=== PATIENT | female | born 1930 | race Caucasian/White ===

== ENCOUNTER 2017-08-09 09:32 | Inpatient (IN) | payer MEDICARE ==
[2017-08-09] VITALS (17 sets, daily range): BP systolic 95–138; BP diastolic 54–80; PULSE 67–111; RESP 16–40; TEMP 97.7–98.7; O2SAT 98–100
[~2017-08-09] VITALS: Ht 165.1 cm; Wt 70.5 kg
[~2017-08-09 09:32] MED LIST: APRISO PO; ATEN1TAB73 PO; BACT800T5 PO; PRAV10 PO; SAXA5TAB2 PO
[2017-08-09] MEDS ORDERED: SODIUM CHLOR 0.9% 1000 ML INJ 1,000 ML IV SCH (09:40)
[2017-08-09] MEDS ORDERED: SODIUM CHLORIDE 0.9% FLUSH 10 ML FLUSH IVF PRN (09:45)
--- NOTE | 2017-08-09 09:52 | PD ---
HPI Chief Complaint: rectal bleeding Time Seen by Provider: 09:40 Travel History International Travel<30 days: No Contact w/Intl Traveler<30days: No Traveled to known affect area: No History of Present Illness HPI The patient was seen and examined in the presence of the nurse. This patient started having rectal bleeding yesterday evening. It's bright red liquid blood coming down. He thinks that it's her hemorrhoids. She's had history of hemorrhoidal bleeding in the past. She denies having a GI physician or any recent bleeding. She denies blood thinners. She's had a colonoscopy in the past but a lot of years ago. No syncope. She is not having any pain. Severity is moderate. She called paramedics. They reported about 100 cc of blood on the floor and active blood running down her leg. Symptoms have no alleviating factors. There are no exacerbating factors. duration one day PFSH Past Medical History Arthritis: Yes Asthma: No Autoimmune Disease: Yes (ulcerative colitis) Anxiety: Yes Depression: No Heart Rhythm Problems: Yes (IRREGULAR HEART BEAT) Cancer: No Cardiovascular Problems: Yes High Cholesterol: No Chest Pain: No Congestive Heart Failure: No COPD: No Cerebrovascular Accident: No Diabetes: Yes Diminished Hearing: No Diverticulitis: Yes (POLUPS) Gastrointestinal Disorders: Yes (ULCERATIVE COLITIS) GERD: No Genitourinary: No Headaches: No Hiatal Hernia: No Hypertension: Yes Immune Disorder: Yes Implanted Vascular Access Dvce: No Kidney Stones: No Musculoskeletal: Yes Neurologic: No Psychiatric: No Reproductive: No Respiratory: No Immunizations Current: Yes Renal Failure: No Seizures: No Sleep Apnea: No Thyroid Disease: No Ulcer: No Menopausal: Yes : 2 Para: 2 Past Surgical History Abdominal Surgery: No Cardiac Surgery: No Ear Surgery: No Endocrine Surgery: No Eye Surgery: No Genitourinary Surgery: No Gynecologic Surgery: No Neurologic Surgery: No Oral Surgery: No Thoracic Surgery: No Other Surgery: Yes (VARICOSE VEINS) Social History Alcohol Use: No Tobacco Use: No Substance Use: No Allergies-Medications (Allergen,Severity, Reaction): Coded Allergies: lisinopril (Unverified Allergy, Severe, Rash, 08/09/17) penicillin G (Unverified Allergy, Severe, HIVES, 08/09/17) CONFIRM? shrimp (Unverified Allergy, Severe, PT STATES SHE "PASSES OUT" WHEN SHE EATS SHRIMP, 08/09/17) ORIGINAL ALLERGY ENTERED WAS TO GENERAL SEAFOOD. PT CLEARLY STATED THE ONLY TYPE OF SEAFOOD SHE REACTS TO IS SHRIMP, SHE EATS ALL OTHER SEAFOOD ON A REGULAR BASIS AT HOME. Uncoded Allergies: WINE (Adverse Reaction, Unknown, 06/26/03) Reported Meds & Prescriptions Reported Meds & Active Scripts Active Reported Metformin (Metformin HCl) 500 Mg Tab Unknown Dose PO BIDPC Atenolol 25 Mg Tab 25 Mg PO DAILY Pravastatin 10 Mg Tab 10 Mg PO DAILY [Apriso Er 0.375] 0.375 Gm PO DAILY 4 CAPS IN AM Review of Systems General / Constitutional: No: Fever Eyes: No: Visual changes HENT: No: Headaches Cardiovascular: No: Chest Pain or Discomfort Respiratory: No: Shortness of Breath Gastrointestinal: Positive: Hematochezia, No: Abdominal Pain Genitourinary: No: Dysuria Musculoskeletal: No: Pain Skin: No Rash Neurologic: No: Weakness Psychiatric: No: Depression Endocrine: No: Polydipsia Hematologic/Lymphatic: No: Easy Bruising Physical Exam Narrative GENERAL: Elderly well-developed patient in no apparent distress. SKIN: Focused skin assessment reveals no rash and nodules. Skin is Warm and dry. HEAD: Atraumatic. Normocephalic. EYES: Pupils equal and round. No scleral icterus. No injection or drainage. ENT: No nasal bleeding or discharge. Mucous membranes pink and moist. NECK: Trachea midline. No JVD. CARDIOVASCULAR: Irregularly irregular rhythm. No murmur appreciated. RESPIRATORY: No accessory muscle use. Clear to auscultation. Breath sounds equal bilaterally. GASTROINTESTINAL: Abdomen soft, non-tender, nondistended. Hepatic and splenic margins not palpable. MUSCULOSKELETAL: No obvious deformities. No clubbing. No cyanosis. No edema. NEUROLOGICAL: Awake and alert. No obvious cranial nerve deficits. Motor grossly within normal limits. Normal speech. PSYCHIATRIC: Appropriate mood and affect; insight and judgment normal. Rectal: Has some prominent heaped up tissue around the anus. No active external hemorrhoidal bleeding. However upon rectal exam, as soon as finger was inserted there was immediate onset of bright red liquid bleeding. Data Data Last Documented VS Vital Signs Date Time Temp Pulse Resp B/P (MAP) Pulse Ox O2 Delivery O2 Flow Rate FiO2 08/09/17 10:46 77 16 95/62 (73) 99 Room Air 08/09/17 09:53 97.9 Orders Orders Basic Metabolic Panel (Bmp) (08/09/17 09:40) Complete Blood Count With Diff (08/09/17 09:40) Prothrombin Time / Inr (Pt) (08/09/17 09:40) Act Partial Throm Time (Ptt) (08/09/17 09:40) Type And Screen (08/09/17 09:40) Ecg Monitoring (08/09/17 09:40) Iv Access Insert/Monitor (08/09/17 09:40) Oximetry (08/09/17 09:40) Sodium Chlor 0.9% 1000 Ml Inj (Ns 1000 M (08/09/17 09:40) Sodium Chloride 0.9% Flush (Ns Flush) (08/09/17 09:45) Electrocardiogram (08/09/17 ) Complete Blood Count With Diff (08/09/17 10:54) Admit Order (Ed Use Only) (08/09/17 11:07) Labs Laboratory Tests Test 08/09/17 09:45 08/09/17 11:00 White Blood Count 9.5 TH/MM3 8.9 TH/MM3 Red Blood Count 3.90 MIL/MM3 3.72 MIL/MM3 Hemoglobin 10.9 GM/DL 10.4 GM/DL Hematocrit 34.1 % 32.7 % Mean Corpuscular Volume 87.5 FL 88.1 FL Mean Corpuscular Hemoglobin 28.1 PG 28.1 PG Mean Corpuscular Hemoglobin Concent 32.1 % 31.9 % Red Cell Distribution Width 13.6 % 13.6 % Platelet Count 179 TH/MM3 180 TH/MM3 Mean Platelet Volume 9.2 FL 9.3 FL Neutrophils (%) (Auto) 82.3 % 78.9 % Lymphocytes (%) (Auto) 8.4 % 10.2 % Monocytes (%) (Auto) 7.8 % 6.8 % Eosinophils (%) (Auto) 0.9 % 0.8 % Basophils (%) (Auto) 0.6 % 3.3 % Neutrophils # (Auto) 7.8 TH/MM3 7.0 TH/MM3 Lymphocytes # (Auto) 0.8 TH/MM3 0.9 TH/MM3 Monocytes # (Auto) 0.7 TH/MM3 0.6 TH/MM3 Eosinophils # (Auto) 0.1 TH/MM3 0.1 TH/MM3 Basophils # (Auto) 0.1 TH/MM3 0.3 TH/MM3 CBC Comment DIFF FINAL DIFF FINAL Differential Comment Prothrombin Time 13.4 SEC Prothromb Time International Ratio 1.2 RATIO Activated Partial Thromboplast Time 41.0 SEC Blood Urea Nitrogen 27 MG/DL Creatinine 0.91 MG/DL Random Glucose 142 MG/DL Calcium Level 7.9 MG/DL Sodium Level 137 MEQ/L Potassium Level 3.6 MEQ/L Chloride Level 102 MEQ/L Carbon Dioxide Level 23.3 MEQ/L Anion Gap 12 MEQ/L Estimat Glomerular Filtration Rate 58 ML/MIN MDM Medical Decision Making Medical Screen Exam Complete: Yes Emergency Medical Condition: Yes Medical Record Reviewed: Yes Differential Diagnosis Internal hemorrhoidal bleeding, AV malformation, tumor, diverticulosis Narrative Course I have reviewed the patient's electronic medical record. Patient was seen here 2013 and that time it was noted that she had a history of ulcerative colitis IV placed 2 Initial blood pressure is low at 100 systolic I gave her total of 2 L normal saline IV bolus Blood sent for type and screen CBC Metabolic profile Coagulation studies I reviewed her EKG which shows atrial fibrillation with a rate of 74 Extended cardiac monitoring shows irregularly irregular rhythm Patient denies history of arrhythmia or any blood thinners including aspirin. Critical Care Narrative Aggregate critical care time was 38 minutes. Time to perform other separately billable procedures was not included in the critical care time. My time did not include minutes spent treating any other patients simultaneously or on activities that did not directly contribute to the patient's treatment. The services I provided to this patient were to treat and/or prevent clinically significant deterioration that could result in: Hemorrhagic shock, cardiopulmonary arrest I provided critical care services requiring my management, as noted below: Chart data review, documentation time, medication orders and management, vital sign assessments/reviewing monitor data, ordering and reviewing lab tests, ordering and interpreting/reviewing x-rays and diagnostic studies, care of the patient and discussion of the patient with the admitting physicians. Diagnosis Primary Impression: GI bleed Qualified Codes: K92.2 - Gastrointestinal hemorrhage, unspecified Additional Impression: Hypotension Qualified Codes: I95.9 - Hypotension, unspecified Admitting Information Admitting Physician Requests: Lon Heller MD Aug 09, 2017 09:52
[2017-08-09 10:01] LABS: AUTOMATED NEUTROPHIL # 7.8 TH/MM3 (1.8-7.7); BASOPHIL # 0.1 TH/MM3 (0-0.2); BASOPHIL % 0.6 % (0.0-2.0); EOSINOPHIL # 0.1 TH/MM3 (0-0.4); EOSINOPHIL % 0.9 % (0.0-4.0); HEMATOCRIT 34.1 % (35.0-46.0); HEMO FLAGS DIFF FINAL; LYMPH % 8.4 % (9.0-44.0); LYMPHOCYTE # 0.8 TH/MM3 (1.0-4.8); MEAN CELL VOLUME 87.5 FL (80.0-100.0); MEAN CORPUSCULAR HEMOGLOBIN 28.1 PG (27.0-34.0); MEAN CORPUSCULAR HGB CONC 32.1 % (32.0-36.0); MONO % 7.8 % (0.0-8.0); NEUT % 82.3 % (16.0-70.0); PLATELET COUNT 179 TH/MM3 (150-450); RED CELL DISTRIBUTION WIDTH 13.6 % (11.6-17.2); WHITE BLOOD COUNT 9.5 TH/MM3 (4.0-11.0)
[2017-08-09] MEDS ORDERED: PRAV10TA PO (10:06)
[2017-08-09] MEDS ORDERED: METF500T PO (10:06)
[2017-08-09] MEDS ORDERED: ATEN25TA PO (10:06)
[2017-08-09 10:11] LABS: POTASSIUM 3.6 MEQ/L (3.5-5.1)
[2017-08-09 10:14] LABS: BICARBONATE 23.3 MEQ/L (21.0-32.0)
[2017-08-09 10:15] LABS: INTERNATIONAL NORMALIZED RATIO 1.2 RATIO; PROTHROMBIN TIME - PATIENT 13.4 SEC (9.8-11.6)
[2017-08-09] MEDS ORDERED: MISCELLANEOUS NURSING INFORMATION XX SCH (11:00)
[2017-08-09] MEDS ORDERED: LACTULOSE SYRUP 20 GM/30 ML CUP PO PRN (11:00)
[2017-08-09] MEDS ORDERED: SODIUM CHLORIDE 0.9% FLUSH 10 ML FLUSH IV FLUSH PRN (11:00)
[2017-08-09] MEDS ORDERED: SENNOSIDES 8.6 MG TAB PO PRN (11:00)
[2017-08-09] MEDS ORDERED: CHLORHEXIDINE GLUCONATE 2 % 1 PACK (2 CLOTHS) TOP PRN (11:00)
[2017-08-09] MEDS ORDERED: RESP: ALBUTEROL 2.5 MG/3 ML NEB (PRN) INH (11:00)
[2017-08-09] MEDS ORDERED: ONDANSETRON HCL 4 MG/2 ML VIAL IV PUSH PRN (11:00)
[2017-08-09] MEDS ORDERED: MAGNESIUM HYDROXIDE SUSP 30 ML CUP PO PRN (11:00)
[2017-08-09] MEDS ORDERED: BISACODYL 10 MG SUPP RECTAL PRN (11:00)
[2017-08-09 11:04] LABS: BASOPHIL # 0.3 TH/MM3 (0-0.2); BASOPHIL % 3.3 % (0.0-2.0); EOSINOPHIL # 0.1 TH/MM3 (0-0.4); EOSINOPHIL % 0.8 % (0.0-4.0); HEMATOCRIT 32.7 % (35.0-46.0); HEMO FLAGS DIFF FINAL; LYMPH % 10.2 % (9.0-44.0); LYMPHOCYTE # 0.9 TH/MM3 (1.0-4.8); MEAN CELL VOLUME 88.1 FL (80.0-100.0); MEAN CORPUSCULAR HEMOGLOBIN 28.1 PG (27.0-34.0); MEAN CORPUSCULAR HGB CONC 31.9 % (32.0-36.0); MONO % 6.8 % (0.0-8.0); NEUT % 78.9 % (16.0-70.0); PLATELET COUNT 180 TH/MM3 (150-450); RED BLOOD COUNT 3.72 MIL/MM3 (4.00-5.30); RED CELL DISTRIBUTION WIDTH 13.6 % (11.6-17.2); WHITE BLOOD COUNT 8.9 TH/MM3 (4.0-11.0)
[2017-08-09] MEDS ORDERED: TERBUTALINE INJ 1 MG/ML AMP SQ PRN (11:15)
[2017-08-09] MEDS ORDERED: PHENYLEPHRINE INJ 40 MG in DEXTROSE 5% IN WATE 500 ML INJ 496 ML IV PRN ×2 (11:15)
[2017-08-09] MEDS: SODIUM CHLOR 0.9% 1000 ML INJ 1,000 ML IV SCH ×2 (11:32→21:26)
[2017-08-09] MEDS ORDERED: PHENYLEPHRINE 40 MG in D5W 500 ML IV PRN (12:00)
[2017-08-09 12:40] LABS: MAGNESIUM 1.8 MG/DL (1.5-2.5)
[2017-08-09] MEDS: ARTIFICIAL TEARS OPTH SOLN 15 ML BTL EACH EYE SCH ×2 (13:00→18:00)
--- NOTE | 2017-08-09 13:49 | HHI.HP ---
[facility] Service Critical Care Medicine Primary Care Physician Lidia Grey MD Admission Diagnosis acute GI bleed, hypotension Diagnosis: (1) Elevated troponin Diagnosis: Principal (2) Elevated partial thromboplastin time (PTT) Diagnosis: Principal (3) Dyslipidemia Diagnosis: Secondary (4) Diabetes mellitus Diagnosis: Secondary (5) Ulcerative colitis Diagnosis: Principal (6) Chronic venous stasis dermatitis Diagnosis: Principal (7) Hypertension Diagnosis: Secondary (8) History of gastrointestinal diverticular hemorrhage Diagnosis: Secondary (9) Acute blood loss anemia Diagnosis: Principal (10) Fibrillation, atrial Diagnosis: Secondary (11) GI bleed Diagnosis: Principal Chief Complaint: Bright red blood per rectum Travel History International Travel<30 Days: No Contact w/Intl Traveler <30 Da: No Traveled to Known Affected Are: No History of Present Illness This is a 86-year-old female. Full code. Date of admission 2016. Past medical history includes ulcerative colitis, hypertension, dyslipidemia, diabetes history of diverticular bleed 2002. She also has a diagnosis of "irregular heart rate. One EKG available shows first-degree AV block. She is currently in each fibrillation rate control. She presents to [facility] with a 24-hour history of bright red blood per rectum. This began yesterday evening according to patient. Painless. According to patient she states "it's my hemorrhoids". Denies abdominal pain or cramping. According to ER physician on examination there was bright red blood per rectum. Originally patient presented with hypotension and she received 2 L normal saline in ED. Hemoglobin was attempted on 9 currently 10.4. Elevated PTT 41. Troponin 0.11. EKG showing A. fib with controlled rate of 70s patient denies chest pain or shortness of breath. Review of Systems Constitutional: COMPLAINS OF: Fatigue, DENIES: Fever, Weight gain, Weight loss Endocrine: DENIES: Polydipsia, Polyuria Eyes: DENIES: Blurred vision, Vision loss Ears, nose, mouth, throat: COMPLAINS OF: Hearing loss, DENIES: Tinnitus, Running Nose, Epistaxis Respiratory: DENIES: Shortness of breath Cardiovascular: DENIES: Chest pain, Palpitations Gastrointestinal: COMPLAINS OF: Bloody stools, DENIES: Abdominal pain, Diarrhea , Nausea, Vomiting Genitourinary: DENIES: Urinary frequency, Urinary incontinence Musculoskeletal: DENIES: Joint pain Integumentary: COMPLAINS OF: Abnormal pigmentation, DENIES: Rash Hematologic/lymphatic: DENIES: Bruising Immunologic/allergic: DENIES: Eczema, Urticaria Neurologic: DENIES: Headache Psychiatric: COMPLAINS OF: Confusion, DENIES: Anxiety, Depression Past Family Social History Allergies: Coded Allergies: lisinopril (Unverified Allergy, Severe, Rash, 08/09/17) penicillin G (Unverified Allergy, Severe, HIVES, 08/09/17) CONFIRM? shrimp (Unverified Allergy, Severe, PT STATES SHE "PASSES OUT" WHEN SHE EATS SHRIMP, 08/09/17) ORIGINAL ALLERGY ENTERED WAS TO GENERAL SEAFOOD. PT CLEARLY STATED THE ONLY TYPE OF SEAFOOD SHE REACTS TO IS SHRIMP, SHE EATS ALL OTHER SEAFOOD ON A REGULAR BASIS AT HOME. Uncoded Allergies: WINE (Adverse Reaction, Unknown, 06/26/03) Past Medical History History of diverticulosis History of colonic polyps Ulcerative colitis Hypertension Dyslipidemia Diabetes mellitus Chronic venous stasis Past Surgical History History of colonoscopy Varicose veins Reported Medications Metformin (Metformin HCl) 500 Mg Tab Unknown Dose PO BIDPC Atenolol 25 Mg Tab 25 Mg PO DAILY Pravastatin 10 Mg Tab 10 Mg PO DAILY [Apriso Er 0.375] 0.375 Gm PO DAILY 4 CAPS IN AM Active Ordered Medications Reviewed in EMR Family History Positive for diabetes, cancer and hypertension Social History No documentation of alcohol, tobacco or illicit drug use Physical Exam Vital Signs Vital Signs Date Time Temp Pulse Resp B/P (MAP) Pulse Ox O2 Delivery O2 Flow Rate FiO2 08/09/17 12:50 08/09/17 12:29 67 16 113/73 (86) 100 Room Air 08/09/17 11:35 79 16 121/54 (76) 99 Room Air 08/09/17 11:10 86 16 121/72 (88) 99 Room Air 08/09/17 10:46 77 16 95/62 (73) 99 Room Air 08/09/17 10:22 76 16 123/76 (92) 100 Room Air 08/09/17 09:59 (78) 08/09/17 09:53 97.9 74 16 103/66 (78) 99 Room Air 08/09/17 09:53 99 Room Air Physical Exam GENERAL: 78-year-old female, resting in bed in no acute distress SKIN: Warm and dry. Well-perfused. Chronic venous stasis bilateral lower extremities below the knees HEAD: Atraumatic. Normocephalic. EYES: Pupils equal and round. No scleral icterus. No injection or drainage. ENT: No nasal bleeding or discharge. Mucous membranes pink and moist. NECK: Trachea midline. No JVD. CARDIOVASCULAR: IR. S1, S2 no S4. 2/6 systolic murmur at the apex RESPIRATORY: Clear to auscultation. Breath sounds equal bilaterally. GASTROINTESTINAL: Abdomen soft, non-tender, nondistended. Hypoactive bowel sounds appreciative. Bright red Blood per rectum on examination. MUSCULOSKELETAL: Extremities without clubbing, cyanosis, or edema. No obvious deformities. NEUROLOGICAL: Awake and alert. No obvious cranial nerve deficits. Motor grossly within normal limits. Five out of 5 muscle strength in the arms and legs. Normal speech. Laboratory Laboratory Tests Test 08/09/17 09:45 08/09/17 11:00 08/09/17 11:20 White Blood Count 9.5 8.9 Red Blood Count 3.90 3.72 Hemoglobin 10.9 10.4 Hematocrit 34.1 32.7 Mean Corpuscular Volume 87.5 88.1 Mean Corpuscular Hemoglobin 28.1 28.1 Mean Corpuscular Hemoglobin Concent 32.1 31.9 Red Cell Distribution Width 13.6 13.6 Platelet Count 179 180 Mean Platelet Volume 9.2 9.3 Neutrophils (%) (Auto) 82.3 78.9 Lymphocytes (%) (Auto) 8.4 10.2 Monocytes (%) (Auto) 7.8 6.8 Eosinophils (%) (Auto) 0.9 0.8 Basophils (%) (Auto) 0.6 3.3 Neutrophils # (Auto) 7.8 7.0 Lymphocytes # (Auto) 0.8 0.9 Monocytes # (Auto) 0.7 0.6 Eosinophils # (Auto) 0.1 0.1 Basophils # (Auto) 0.1 0.3 CBC Comment DIFF FINAL DIFF FINAL Differential Comment Prothrombin Time 13.4 Prothromb Time International Ratio 1.2 Activated Partial Thromboplast Time 41.0 Blood Urea Nitrogen 27 Creatinine 0.91 Random Glucose 142 Calcium Level 7.9 Sodium Level 137 Potassium Level 3.6 Chloride Level 102 Carbon Dioxide Level 23.3 Anion Gap 12 Estimat Glomerular Filtration Rate 58 Lactic Acid Level 1.3 Magnesium Level 1.8 Ammonia 12 Troponin I 0.11 Amylase Level 137 Lipase 232 Result Diagram: 08/09/17 1100 08/09/17 0945 Caprini VTE Risk Assessment Caprini VTE Risk Assessment: Mod/High Risk (score >= 2) VTE Pharm Contraindication: Hemorrhage Caprini Risk Assessment Model Point Value = 1 Point Value = 2 Point Value = 3 Point Value = 5 Age 41-60 Minor surgery BMI > 25 kg/m2 Swollen legs Varicose veins or History of unexplained or recurrent spontaneous Oral contraceptives or hormone replacement Sepsis (< 1 month) Serious lung disease, including pneumonia (< 1 month) Abnormal pulmonary function Acute myocardial infarction Congestive heart failure (< 1 month) History of inflammatory bowel disease Medical patient at bed rest Age 61-74 Arthroscopic surgery Major open surgery (> 45 min) Laparoscopic surgery (> 45 min) Malignancy Confined to bed (> 72 hours) Immobilizing plaster cast Central venous access Age >= 75 History of VTE Family history of VTE Factor V Leiden Prothrombin [id number] Lupus anticoagulant Anticardiolipin antibodies Elevated serum homocysteine Heparin-induced thrombocytopenia Other congenital or acquired thrombophilia Stroke (< 1 month) Elective arthroplasty Hip, pelvis, or leg fracture Acute spinal cord injury (< 1 month) Prophylaxis Regimen Total Risk Factor Score Risk Level Prophylaxis Regimen 0-1 Low Early ambulation 2 Moderate Order ONE of the following: *Sequential Compression Device (SCD) *Heparin 5000 units SQ BID 3-4 Higher Order ONE of the following medications: *Heparin 5000 units SQ TID *Enoxaparin/Lovenox 40 mg SQ daily (WT < 150 kg, CrCl > 30 mL/min) *Enoxaparin/Lovenox 30 mg SQ daily (WT < 150 kg, CrCl > 10-29 mL/min) *Enoxaparin/Lovenox 30 mg SQ BID (WT < 150 kg, CrCl > 30 mL/min) AND/OR *Sequential Compression Device (SCD) 5 or more Highest Order ONE of the following medications: *Heparin 5000 units SQ TID (Preferred with Epidurals) *Enoxaparin/Lovenox 40 mg SQ daily (WT < 150 kg, CrCl > 30 mL/min) *Enoxaparin/Lovenox 30 mg SQ daily (WT < 150 kg, CrCl > 10-29 mL/min) *Enoxaparin/Lovenox 30 mg SQ BID (WT < 150 kg, CrCl > 30 mL/min) AND *Sequential Compression Device (SCD) Assessment and Plan Assessment and Plan Neuro/Psych: Dementia disorder NOS IV Ofirmev/acetaminophen 1 g IV every 8 hours when necessary fever/pain 1-10 CV: History of hypertension History dyslipidemia Atrial fibrillation rate controlled. Question history of paroxysmal atrial fibrillation. History of first-degree AV block Holding atenolol 25 mg by mouth daily/home medication for hypertension. Resume when clinically indicated Holding pravastatin 10 mg by mouth daily for dyslipidemia/home medication. Resume when clinically indicated Currently on normal saline at 84 cc an hour. Received 2 L wide-open normal saline. Currently hemodynamically stable Resp: Nasal cannula to maintain saturations greater than equal to 90% Incentive spirometry while awake GI: Lower GI bleed - bright red blood per rectum History diverticulosis Ulcerative colitis History of colonic polyps Currently down from nuclear medicine bleeding scan Resume home medication of Apriso 0.3754 tablets daily for inflammatory bowel disease Dr. Blue consulted. He will see Serial hemoglobins every 6 hours Will need colonoscopy at some point Currently on pantoprazole 40 mg IV twice a day : Velázquez catheter will be placed for accurate I's and O's in a critically ill patient Endo: Diabetes mellitus Sliding-scale insulin to maintain euglycemia/Novulog low regimen Holding home medication metformin 500 mg by mouth twice a day Renal: Creatinine currently within normal limits at 0.9. Monitor urine output Accurate I's and O's Heme: Acute blood loss anemia/normocytic Elevated PTT Check hemoglobin every 6 hours. Type and screen Currently does not need blood transfusion triggers at this time Fresh frozen plasma with elevated PTT. Recheck in a.m. ID: Monitor for infection MSK: Currently under bedrest. PT evaluate and treat FEN: Replace electrolytes as clinically indicated Access - Utilized peripheral IVs. Central line if indicated Prophylaxis - GI - pantoprazole 40 mg IV twice a day - DVT - SCD/pharmacological prophylaxis contra indicated with acute hemorrhage Level III admission Code Status Full code Discussed Condition With Patient. Dr. Blue received patient. Care plan discussed and all questions answered. Problem Qualifiers (1) Diabetes mellitus: Qualified Codes: E11.8 - Type 2 diabetes mellitus with unspecified complications (2) Ulcerative colitis: (3) Hypertension: Qualified Codes: I10 - Essential (primary) hypertension (4) Fibrillation, atrial: Qualified Codes: I48.0 - Paroxysmal atrial fibrillation (5) GI bleed: Qualified Codes: K92.2 - Gastrointestinal hemorrhage, unspecified Arpan Lanier MD Aug 09, 2017 13:48
[2017-08-09] MEDS ORDERED: GLUCAGON 1 MG/ML VIAL OTHER PRN (14:00)
[2017-08-09] MEDS ORDERED: DEXTROSE 50% IN WATER 50 ML VIAL(D50) IV PUSH PRN (14:00)
--- NOTE | 2017-08-09 14:33 | RADRPT ---
EXAM DATE/TIME: 08/09/2017 14:01 Jimenez Phelps MD FACR on August 09, 2017 at 14:31 Board Certified Radiologist. This report was verified electronically.
[2017-08-09] MEDS ORDERED: ACETAMINOPHEN 1000 MG/100 ML 100 ML IV PRN (15:00)
--- NOTE | 2017-08-09 16:59 | HHI.GIFU ---
GI Follow-up Note Consult Follow-up Subjective: Came to see pt but she is in nuclear med getting bleeding scan. I saw her down there. She lives alone and called evac today with c/o painless BRBPR although she states her hemorrhoids have been bothering her lately. She has long hx of ulcerative colitis but has been doing well on Apriso and denies any recent IBD sxs. VS have been stable. She denies taking any blood thinners. Objective: PHYSICAL EXAMINATION: Vitals signs stable No fever ABDOMEN: Soft, nondistended, nontender. Unable to do rectal exam during her scan. EXTREMITIES: No clubbing, cyanosis, or edema. SKIN: warm and dry. her facial color looks good. [employer]USS DRIVER HELPER: A&O, hard of hearing. Available Data (labs, X- Rays, Procedues) : She is about 80% through bleeding scan and so far looks negative. ASSESSMENT/PLAN: 1. Hematochezia-could be hemorrhoidal bleeding but I suspect a diverticular bleed. Keep on clear liquids and monitor H&H closely transfusing if necessary. Will reserve colonoscopy if bleeding does not stop. It was a pleasure seeing Alondra Ramsey Thank you for this consult. Entered by: Arpan Perdomo MD Aug 09, 2017 16:59
--- NOTE | 2017-08-09 17:28 | RADRPT ---
EXAM DATE/TIME: 08/09/2017 14:59 [facility] COMPARISON: No previous studies available for comparison. INDICATIONS : Rectal bleeding. DOSE: 21 mCi Tc99m Ultratag labeled red blood cells IV IMAGIN hrs MEDICAL HISTORY : Hypotension. SURGICAL HISTORY : Varicose veins. ENCOUNTER: Initial ACUITY: 1 day PAIN SCALE: 0/10 LOCATION: Abdomen. TECHNIQUE: Following the modified in vitro labeling of autologous red cells, dynamic continuous images were acqu ired for the specified interval. FINDINGS: BIODISTRIBUTION: There is a very good labeling of red cells without significant uptake in the gastric wall. There is good delineation of the blood pool of the spleen and abdominal vessels. BLEEDING: No episodes of active GI bleeding are observed during specified interval of continuous observation. CONCLUSION: Negative GI bleeding scan. Antwon Concepcion MD on August 09, 2017 at 17:26 Board Certified Radiologist. This report was verified electronically.
[2017-08-09] MEDS: INSULIN NovoLIN REGULAR SUPPLEMENTAL SCALE SQ SCH ×2 (18:19→21:00)
[2017-08-09 19:43] LABS: HEMATOCRIT 27.9 % (35.0-46.0); REVIEW FLAG FINAL
[2017-08-09 19:53] LABS: INDIRECT BILIRUBIN 0.6 MG/DL (0.0-0.8)
[2017-08-09 20:07] LABS: CKMB 2.8 NG/ML (0.5-3.6)
[2017-08-09] MEDS: DOCUSATE SODIUM 50 MG/SENNA 8.6 MG TAB PO SCH (21:00)
[2017-08-09] MEDS: PANTOPRAZOLE SODIUM 40 MG VIAL IV PUSH SCH (21:33)
[2017-08-09] MEDS: SODIUM CHLORIDE 0.9% FLUSH 10 ML FLUSH IV FLUSH SCH (21:42)
[2017-08-10] VITALS (15 sets, daily range): BP systolic 123–136; BP diastolic 58–96; PULSE 87–112; RESP 17–41; TEMP 98.2–98.6; O2SAT 97–100
[2017-08-10] MEDS: CHLORHEXIDINE GLUCONATE 2 % 1 PACK (2 CLOTHS) TOP SCH ×2 (01:43→23:59)
[2017-08-10 05:27] LABS: APTT (PATIENT) 29.6 SEC (24.3-30.1); INTERNATIONAL NORMALIZED RATIO 1.1 RATIO; PROTHROMBIN TIME - PATIENT 12.7 SEC (9.8-11.6)
[2017-08-10 05:42] LABS: MAGNESIUM 1.5 MG/DL (1.5-2.5)
[2017-08-10 05:52] LABS: AUTOMATED NEUTROPHIL # 7.1 TH/MM3 (1.8-7.7); BASOPHIL % 0.5 % (0.0-2.0); EOSINOPHIL # 0.1 TH/MM3 (0-0.4); EOSINOPHIL % 1.1 % (0.0-4.0); HEMATOCRIT 29.8 % (35.0-46.0); HEMO FLAGS DIFF FINAL; LYMPH % 9.5 % (9.0-44.0); LYMPHOCYTE # 0.8 TH/MM3 (1.0-4.8); MEAN CELL VOLUME 89.7 FL (80.0-100.0); MEAN CORPUSCULAR HEMOGLOBIN 30.8 PG (27.0-34.0); MEAN CORPUSCULAR HGB CONC 34.3 % (32.0-36.0); MONO % 8.4 % (0.0-8.0); NEUT % 80.5 % (16.0-70.0); PLATELET COUNT 138 TH/MM3 (150-450); RED BLOOD COUNT 3.32 MIL/MM3 (4.00-5.30); RED CELL DISTRIBUTION WIDTH 14.2 % (11.6-17.2); WHITE BLOOD COUNT 8.9 TH/MM3 (4.0-11.0)
[2017-08-10] MEDS: INSULIN NovoLIN REGULAR SUPPLEMENTAL SCALE SQ SCH ×4 (08:00→20:19)
[2017-08-10] MEDS: SODIUM CHLORIDE 0.9% FLUSH 10 ML FLUSH IV FLUSH SCH ×2 (08:12→20:19)
[2017-08-10] MEDS: PANTOPRAZOLE SODIUM 40 MG VIAL IV PUSH SCH ×2 (08:13→20:19)
[2017-08-10] MEDS: ARTIFICIAL TEARS OPTH SOLN 15 ML BTL EACH EYE SCH ×3 (09:00→17:29)
[2017-08-10] MEDS ORDERED: APRISO 0.375 GM PO SCH (09:00)
[2017-08-10] MEDS: DOCUSATE SODIUM 50 MG/SENNA 8.6 MG TAB PO SCH ×2 (09:00→20:18)
--- NOTE | 2017-08-10 09:10 | HHI.CCPN ---
Subjective Remarks/Hospital Course This is a 86-year-old female. Full code. Date of admission 2016. Past medical history includes ulcerative colitis, hypertension, dyslipidemia, diabetes history of diverticular bleed 2002. She also has a diagnosis of "irregular heart rate. One EKG available shows first-degree AV block. She is currently in each fibrillation rate control. She presents to [facility] with a 24-hour history of bright red blood per rectum. This began yesterday evening according to patient. Painless. According to patient she states "it's my hemorrhoids". Denies abdominal pain or cramping. According to ER physician on examination there was bright red blood per rectum. Originally patient presented with hypotension and she received 2 L normal saline in ED. Hemoglobin was attempted on 10.4. Elevated PTT 41. Troponin 0.11. EKG showing A. fib with controlled rate of 70s patient denies chest pain or shortness of breath. Subjective 08/10: Received 1 FFP and one PRBCs overnight. Afebrile. Still passing clots per rectum. Hemodynamically stable. Objective Vital Signs Date Time Temp Pulse Resp B/P (MAP) Pulse Ox O2 Delivery O2 Flow Rate FiO2 08/10/17 06:00 92 08/10/17 04:00 98.6 17 123/58 (79) 100 08/09/17 12:29 Room Air Result Diagram: 08/10/17 0501 08/09/17 0945 Imaging Last Impressions GI Bleed Scan Nuclear Medicine 08/09/17 0000 Signed Impressions: Service Date/Time: Wednesday, August 09, 2017 14:59 - CONCLUSION: Negative GI bleeding scan. Antwon Concepcion MD Objective Remarks GENERAL: 78-year-old female, resting in bed in no acute distress SKIN: Warm and dry. Well-perfused. Chronic venous stasis bilateral lower extremities below the knees HEAD: Atraumatic. Normocephalic. EYES: Pupils equal and round. No scleral icterus. No injection or drainage. ENT: No nasal bleeding or discharge. Mucous membranes pink and moist. NECK: Trachea midline. No JVD. CARDIOVASCULAR: IRR. S1, S2 no S4. 2/6 systolic murmur at the apex RESPIRATORY: Clear to auscultation. Breath sounds equal bilaterally. GASTROINTESTINAL: Abdomen soft, non-tender, nondistended. Hypoactive bowel sounds appreciative. Bright red Blood per rectum on examination. MUSCULOSKELETAL: Extremities without clubbing, cyanosis, or edema. No obvious deformities. NEUROLOGICAL: Awake and alert. No obvious cranial nerve deficits. Motor grossly within normal limits. Five out of 5 muscle strength in the arms and legs. Normal speech. A/P Assessment and Plan Neuro/Psych: Dementia disorder NOS IV Ofirmev/acetaminophen 1 g IV every 8 hours when necessary fever/pain 1-10 CV: History of hypertension History dyslipidemia Atrial fibrillation rate controlled. Question history of paroxysmal atrial fibrillation. History of first-degree AV block Holding atenolol 25 mg by mouth daily/home medication for hypertension. Resume when clinically indicated Holding pravastatin 10 mg by mouth daily for dyslipidemia/home medication. Resume when clinically indicated Currently on normal saline at 84 cc an hour. Received 2 L wide-open normal saline. Currently hemodynamically stable Resp: Nasal cannula to maintain saturations greater than equal to 90% Incentive spirometry while awake GI: Lower GI bleed - bright red blood per rectum History diverticulosis Ulcerative colitis History of colonic polyps Resume home medication of Apriso 0.375 4 tablets daily for inflammatory bowel disease 08/09 Nuclear medicine bleeding scan revealed no sign of bleeding Dr. Blue consulted. Appreciate recommendations Serial hemoglobins every 6 hours Will potentially need colonoscopy at some point Clear liquid diet Currently on pantoprazole 40 mg IV twice a day : Velázquez catheter will be placed for accurate I's and O's in a critically ill patient Endo: Diabetes mellitus Sliding-scale insulin to maintain euglycemia/Novulog low regimen Holding home medication metformin 500 mg by mouth twice a day Renal: Creatinine currently within normal limits at 0.9. Monitor urine output Accurate I's and O's Heme: Acute blood loss anemia/normocytic Elevated PTT - resolved Check hemoglobin every 6 hours. Type and screen Currently does not need blood transfusion triggers at this time Fresh frozen plasma and PRBC 1 yesterday with elevated PTT. ETT normalized ID: Monitor for infection MSK: Currently under bedrest. PT evaluate and treat FEN: Replace electrolytes as clinically indicated Access - Utilized peripheral IVs. Central line if indicated Prophylaxis - GI - pantoprazole 40 mg IV twice a day - DVT - SCD/pharmacological prophylaxis contra indicated with acute hemorrhage Level II follow-up Patient is stable from a critical care medicine standpoint. We'll assign care to hospitalist in a.m. 08/11. Arpan Lanier MD Aug 10, 2017 09:10
[2017-08-10] MEDS ORDERED: PEG (High)/E-LYTE SOLN 4000 ML BTL PO ONE (09:30)
[2017-08-10] MEDS: SODIUM CHLOR 0.9% 1000 ML INJ 1,000 ML IV SCH (10:50)
--- NOTE | 2017-08-10 11:50 | MB ---
cc: ARPAN LOPEZ MD, SOUHEIL BIGA, LOUIS M. MD DATE OF CONSULTATION: 08/10/[address] Arpan Lanier. REASON FOR CONSULTATION GI bleed. HISTORY OF PRESENT ILLNESS Alondra is a very pleasant 86-year-old female well-known to the undersigned with a history of ulcerative colitis which has been in remission on maintenance Apriso. The patient states that she has had no recent flare of her colitis with diarrhea, urgency or tenesmus but yesterday morning started having painless bright red blood per rectum. She states the blood was dripping down her leg onto the kitchen floor. She called [facility] and was brought to the [facility]. She had several bowel movements that were described as bright red blood with some clots. No abdominal pain or nausea. She denies taking any aspirin or NSAIDs. She states her hemorrhoids have been bothering her a lot lately with discomfort. Her last colonoscopy I believe was in 2008 and we will double check those records. SOCIAL HISTORY The patient is recently earlier this year. She lives alone. She does not smoke. She had two children but one from lung cancer, her other daughter lives in [place]. PAST MEDICAL HISTORY Her medical history is remarkable for - 1. Diabetes mellitus. 2. History of ulcerative colitis. 3. Chronic stasis dermatitis. 4. Hypertension. 5. Diverticulitis. 6. Atrial fibrillation. MEDICATIONS 1. Metformin 500 mg twice a day. 2. Atenolol 25 mg daily. 3. Pravastatin 10 mg daily. 4. Apriso 0.375 grams four capsules daily. ALLERGIES SHE HAS NO KNOWN DRUG ALLERGIES. FAMILY HISTORY Remarkable for diabetes and high blood pressure. Daughter had cancer but was a smoker. REVIEW OF SYSTEMS She denies any chest pain, shortness of breath, abdominal pain, nausea. She does have some urinary incontinence. She is hard of hearing but does not have hearing aids. Denies weight loss. PHYSICAL EXAMINATION GENERAL: Reveals an elderly female who is pleasant and in no acute distress. VITAL SIGNS: Her blood pressure is 123/58, pulse 87, respirations 17 nonlabored, temperature is 98.6, O2 sat is 100%. HEAD, EYES, EARS, NOSE AND THROAT: Sclerae are anicteric. Dentition fair. LUNGS: Grossly clear. CARDIOVASCULAR: Heart sounds without murmur, gallop or rub. ABDOMEN: Abdomen is moderately obese, soft and nontender. No appreciable masses. She does have a small umbilical hernia that reduces spontaneously. RECTAL: Rectal exam with her nurse Nikki present. Revealed some external hemorrhoids which were non-thrombosed. Digital exam was slightly tender but no palpable masses and there was fresh red blood on the examining finger. EXTREMITIES: She has some bruising on her extremities. No peripheral edema. She is wearing sequential DAVID hose. NEUROLOGIC: She was alert and oriented. LABORATORY DATA Her hemoglobin yesterday was 10.9 and fell as low as 9.7 and is back up to 10.2 after one unit of packed red blood cells. Platelet count is 138,000, white count 8.9. Her INR yesterday was 1.2 with an APTT of 41 and she was given a unit of fresh frozen plasma, and this morning her INR is 1.1 with an APTT of 29.6 and a pro-time of 12.7. Her BUN yesterday was 27 with a creatinine of 0.91. Troponin was mildly elevated at 0.11 and came down to 0.09. CPK 301, lactic acid normal at 1.1, lipase was normal, amylase was minimally elevated at 137. IMAGING STUDIES GI bleeding scan done yesterday was negative. A chest x-ray apparently was done but the report is not available. IMPRESSION Painless hematochezia. This is most likely due to either a diverticular bleed or possibly from internal hemorrhoids but would favor the former. She appears to have minimal if any bleeding at the present time. Her mild coagulopathy was addressed with FFP. She may have some underlying liver disease or it may have been nutritional as she does not take any blood thinners. Her albumin is only 2.5. She is hemodynamically stable. PLAN I discussed with Alondra the option of waiting and watching and not doing any further intervention as opposed to taking a look into the colon with the scope. I think it is reasonable to give her a partial prep and try to do at least a limited colonoscopy or flex sig to see if the bleeding is from hemorrhoids or likely diverticular. Further disposition will depend upon the findings. The patient agrees with this plan. MD SUZIE Lassiter/ENRIQUETA Stewart: 08/10/2017/9:07 AM /11:30 AM POLLY
[2017-08-10 11:52] LABS: REVIEW FLAG FINAL
--- NOTE | 2017-08-10 12:37 | EKG ---
Date Performed: 08/09/2017 Time Performed: 09:43:22 PTAGE: 86 years EKG: ATRIAL FIBRILLATION WITH CONTROLLED VENTRICULAR RESPONSE AND ONE VENTRICULAR ECTOPIC BEAT M INOR NONSPECIFIC T-WAVE CHANGE Compared to previous tracing, there is a rhythm change from Sinus rhyt hm to atrial fibrillation. ABNORMAL RHYTHM ECG PREVIOUS TRACING : 08/25/2014 14.10 DOCTOR: Maicol Meyres Interpretating Date/Time 08/10/2017 12:36:39
[2017-08-10 12:42] LABS: BICARBONATE 18.2 MEQ/L (21.0-32.0)
[2017-08-11] VITALS (8 sets, daily range): BP systolic 119–146; BP diastolic 56–74; PULSE 90–105; RESP 18–33; TEMP 96–99.3; O2SAT 97–100
[2017-08-11 06:42] LABS: AUTOMATED NEUTROPHIL # 7.5 TH/MM3 (1.8-7.7); BASOPHIL % 0.4 % (0.0-2.0); EOSINOPHIL # 0.1 TH/MM3 (0-0.4); EOSINOPHIL % 1.1 % (0.0-4.0); HEMATOCRIT 29.4 % (35.0-46.0); HEMO FLAGS DIFF FINAL; LYMPH % 8.6 % (9.0-44.0); LYMPHOCYTE # 0.8 TH/MM3 (1.0-4.8); MEAN CELL VOLUME 89.1 FL (80.0-100.0); MEAN CORPUSCULAR HEMOGLOBIN 29.8 PG (27.0-34.0); MEAN CORPUSCULAR HGB CONC 33.5 % (32.0-36.0); MONO % 8.8 % (0.0-8.0); NEUT % 81.1 % (16.0-70.0); PLATELET COUNT 145 TH/MM3 (150-450); RED BLOOD COUNT 3.29 MIL/MM3 (4.00-5.30); RED CELL DISTRIBUTION WIDTH 14.6 % (11.6-17.2); WHITE BLOOD COUNT 9.2 TH/MM3 (4.0-11.0)
[2017-08-11 07:07] LABS: ALKALINE PHOSPHATASE 119 U/L (45-117); ALT (GPT) 12 U/L (10-53); ANION GAP 12 MEQ/L (5-15); AST (GOT) 11 U/L (15-37); BICARBONATE 21.8 MEQ/L (21.0-32.0); BLOOD UREA NITROGEN 7 MG/DL (7-18); CHLORIDE 102 MEQ/L (98-107); GLOMERULAR FILTRATION RATE 82 ML/MIN (>89); MAGNESIUM 1.5 MG/DL (1.5-2.5); SODIUM (NA) 136 MEQ/L (136-145); TOTAL BILIRUBIN ADULT 1.3 MG/DL (0.2-1.0)
[2017-08-11 07:12] LABS: POTASSIUM 2.7 MEQ/L (3.5-5.1)
[2017-08-11] MEDS: ARTIFICIAL TEARS OPTH SOLN 15 ML BTL EACH EYE SCH ×3 (07:53→12:50)
[2017-08-11] MEDS: INSULIN NovoLIN REGULAR SUPPLEMENTAL SCALE SQ SCH ×4 (08:00→21:00)
[2017-08-11] MEDS: PANTOPRAZOLE SODIUM 40 MG VIAL IV PUSH SCH (08:16)
[2017-08-11] MEDS: DOCUSATE SODIUM 50 MG/SENNA 8.6 MG TAB PO SCH ×2 (08:17→20:12)
[2017-08-11] MEDS: SODIUM CHLORIDE 0.9% FLUSH 10 ML FLUSH IV FLUSH SCH ×2 (08:17→20:11)
[2017-08-11] MEDS ORDERED: POTASSIUM CHLORIDE 10 MEQ CONTROLLED RELEASE TAB PO ONE (10:15)
--- NOTE | 2017-08-11 10:23 | HHI.CCPN ---
Subjective Remarks/Hospital Course This is a 86-year-old female. Full code. Date of admission 2016. Past medical history includes ulcerative colitis, hypertension, dyslipidemia, diabetes history of diverticular bleed 2002. She also has a diagnosis of "irregular heart rate. One EKG available shows first-degree AV block. She is currently in each fibrillation rate control. She presents to [facility] with a 24-hour history of bright red blood per rectum. This began yesterday evening according to patient. Painless. According to patient she states "it's my hemorrhoids". Denies abdominal pain or cramping. According to ER physician on examination there was bright red blood per rectum. Originally patient presented with hypotension and she received 2 L normal saline in ED. Hemoglobin was attempted on .4. Elevated PTT 41. Troponin 0.11. EKG showing A. fib with controlled rate of 70s patient denies chest pain or shortness of breath. 08/10: Received 1 FFP and one PRBCs overnight. Afebrile. Still passing clots per rectum. Hemodynamically stable. Subjective 08/11: No blood transfusion overnight. Hemoglobin stable. Requesting advance diet. 3 BM's. Hemodynamically stable. Objective Vital Signs Date Time Temp Pulse Resp B/P (MAP) Pulse Ox O2 Delivery O2 Flow Rate FiO2 08/11/17 08:00 105 08/11/17 08:00 98.1 33 120/56 (77) 98 08/09/17 12:29 Room Air Intake and Output 08/11/17 08/11/17 08/12/17 08:00 16:00 00:00 Intake Total 480 ml Balance 480 ml Result Diagram: 08/11/17 0431 08/11/17 0431 Imaging Last Impressions GI Bleed Scan Nuclear Medicine 08/09/17 0000 Signed Impressions: Service Date/Time: Wednesday, August 09, 2017 14:59 - CONCLUSION: Negative GI bleeding scan. Antwon Concepcion MD Objective Remarks GENERAL: 78-year-old female, resting in bed in no acute distress SKIN: Warm and dry. Well-perfused. Chronic venous stasis bilateral lower extremities below the knees HEAD: Atraumatic. Normocephalic. EYES: Pupils equal and round. No scleral icterus. No injection or drainage. ENT: No nasal bleeding or discharge. Mucous membranes pink and moist. NECK: Trachea midline. No JVD. CARDIOVASCULAR: IRR. S1, S2 no S4. 2/6 systolic murmur at the apex RESPIRATORY: Clear to auscultation. Breath sounds equal bilaterally. GASTROINTESTINAL: Abdomen soft, non-tender, nondistended. Hypoactive bowel sounds appreciative. Bright red Blood per rectum on examination. MUSCULOSKELETAL: Extremities without clubbing, cyanosis, or edema. No obvious deformities. NEUROLOGICAL: Awake and alert. No obvious cranial nerve deficits. Motor grossly within normal limits. Five out of 5 muscle strength in the arms and legs. Normal speech. A/P Assessment and Plan Neuro/Psych: Dementia disorder NOS IV Ofirmev/acetaminophen 1 g IV every 8 hours when necessary fever/pain 1-10 CV: History of hypertension History dyslipidemia Atrial fibrillation rate controlled. Question history of paroxysmal atrial fibrillation. History of first-degree AV block Holding atenolol 25 mg by mouth daily/home medication for hypertension. Resume in a.m. 08/16 Holding pravastatin 10 mg by mouth daily for dyslipidemia/home medication. Resume when clinically indicated Currently on normal saline at 84 cc an hour. Discontinue today Received 2 L wide-open normal saline. Currently hemodynamically stable Resp: Nasal cannula to maintain saturations greater than equal to 90% Incentive spirometry while awake GI: Lower GI bleed - bright red blood per rectum History diverticulosis Ulcerative colitis History of colonic polyps Resume home medication of Apriso 0.375 4 tablets daily for inflammatory bowel disease 08/09 Nuclear medicine bleeding scan revealed no sign of bleeding Dr. Blue consulted. Appreciate recommendations Serial hemoglobins every 6 hours Will potentially need colonoscopy at some point Clear liquid diet. Advance per GIs recommendations Currently on pantoprazole 40 mg IV twice a day : Velázquez catheter will be placed for accurate I's and O's in a critically ill patient Endo: Diabetes mellitus Sliding-scale insulin to maintain euglycemia/Novulog low regimen Holding home medication metformin 500 mg by mouth twice a day Renal: Creatinine currently within normal limits at 0.9. Monitor urine output Accurate I's and O's Heme: Acute blood loss anemia/normocytic Elevated PTT - resolved Check hemoglobin every 6 hours. Type and screen Currently does not need blood transfusion triggers at this time Fresh frozen plasma and PRBC 1 08/09 with elevated PTT. ETT normalized ID: Monitor for infection MSK: Out of bed as tolerated PT evaluate and treat FEN: Hypo-magnesium Hypopotassemia Hypophosphatemia 30 Jhaveri K-Phos, 30 mEq KCl and 2 g mag sulfate. Recheck in a.m. Replace electrolytes as clinically indicated Access - Utilized peripheral IVs. Central line if indicated Prophylaxis - GI - pantoprazole 40 mg IV twice a day - DVT - SCD/pharmacological prophylaxis contra indicated with acute hemorrhage Level II follow-up Patient is stable from a critical care medicine standpoint. We'll assign care to hospitalist in a.m. 08/12. Okay to transfer to medical floor Arpan Lanier MD Aug 11, 2017 10:23
[2017-08-11] MEDS ORDERED: ACETAMINOPHEN 325 MG TAB PO PRN (10:30)
[2017-08-11] MEDS ORDERED: MAGNESIUM CITRATE SOLN 300 ML BTL PO ONE (10:45)
--- NOTE | 2017-08-11 10:48 | HHI.GIFU ---
GI Follow-up Note Consult Follow-up Subjective: Patient laying in bed comfortably, no new complaints and states stools soft and brown with a minimal amount of blood. Objective: PHYSICAL EXAMINATION: Vitals signs stable No fever CHEST: breathing non-labored. ABDOMEN: Soft, nondistended, nontender EXTREMITIES: No clubbing, cyanosis, or edema. SKIN: warm and dry LEGAL ASSISTANT: alert and oriented times three. Available Data (labs, X- Rays, Procedues) : Laboratory Tests Test 08/09/17 09:45 08/09/17 11:00 08/09/17 11:20 08/09/17 13:30 Red Blood Count 3.90 MIL/MM3 (4.00-5.30) 3.72 MIL/MM3 (4.00-5.30) Hemoglobin 10.9 GM/DL (11.6-15.3) 10.4 GM/DL (11.6-15.3) Hematocrit 34.1 % (35.0-46.0) 32.7 % (35.0-46.0) Neutrophils (%) (Auto) 82.3 % (16.0-70.0) 78.9 % (16.0-70.0) Lymphocytes (%) (Auto) 8.4 % (9.0-44.0) Neutrophils # (Auto) 7.8 TH/MM3 (1.8-7.7) Lymphocytes # (Auto) 0.8 TH/MM3 (1.0-4.8) 0.9 TH/MM3 (1.0-4.8) Prothrombin Time 13.4 SEC (9.8-11.6) Activated Partial Thromboplast Time 41.0 SEC (24.3-30.1) Blood Urea Nitrogen 27 MG/DL (7-18) Random Glucose 142 MG/DL (74-106) Calcium Level 7.9 MG/DL (8.5-10.1) Estimat Glomerular Filtration Rate 58 ML/MIN (>89) Mean Corpuscular Hemoglobin Concent 31.9 % (32.0-36.0) Basophils (%) (Auto) 3.3 % (0.0-2.0) Basophils # (Auto) 0.3 TH/MM3 (0-0.2) Troponin I 0.11 NG/ML (0.02-0.05) Amylase Level 137 U/L (25-115) Test 08/09/17 19:07 08/10/17 05:01 08/10/17 11:15 08/10/17 18:35 Hemoglobin 9.7 GM/DL (11.6-15.3) 10.2 GM/DL (11.6-15.3) 10.1 GM/DL (11.6-15.3) 9.9 GM/DL (11.6-15.3) Hematocrit 27.9 % (35.0-46.0) 29.8 % (35.0-46.0) 30.0 % (35.0-46.0) Phosphorus Level 2.3 MG/DL (2.5-4.9) 2.2 MG/DL (2.5-4.9) Direct Bilirubin 0.4 MG/DL (0.0-0.2) Alkaline Phosphatase 118 U/L (45-117) Total Creatine Kinase 301 U/L (26-192) Troponin I 0.09 NG/ML (0.02-0.05) Total Protein 5.6 GM/DL (6.4-8.2) Albumin 2.5 GM/DL (3.4-5.0) Red Blood Count 3.32 MIL/MM3 (4.00-5.30) Platelet Count 138 TH/MM3 (150-450) Neutrophils (%) (Auto) 80.5 % (16.0-70.0) Monocytes (%) (Auto) 8.4 % (0.0-8.0) Lymphocytes # (Auto) 0.8 TH/MM3 (1.0-4.8) Prothrombin Time 12.7 SEC (9.8-11.6) Random Glucose 204 MG/DL (74-106) Calcium Level 7.5 MG/DL (8.5-10.1) Potassium Level 3.0 MEQ/L (3.5-5.1) Carbon Dioxide Level 18.2 MEQ/L (21.0-32.0) Estimat Glomerular Filtration Rate 82 ML/MIN (>89) Test 08/11/17 04:31 Red Blood Count 3.29 MIL/MM3 (4.00-5.30) Hemoglobin 9.8 GM/DL (11.6-15.3) Hematocrit 29.4 % (35.0-46.0) Platelet Count 145 TH/MM3 (150-450) Neutrophils (%) (Auto) 81.1 % (16.0-70.0) Lymphocytes (%) (Auto) 8.6 % (9.0-44.0) Monocytes (%) (Auto) 8.8 % (0.0-8.0) Lymphocytes # (Auto) 0.8 TH/MM3 (1.0-4.8) Random Glucose 122 MG/DL (74-106) Total Protein 5.6 GM/DL (6.4-8.2) Albumin 2.6 GM/DL (3.4-5.0) Calcium Level 7.8 MG/DL (8.5-10.1) Phosphorus Level 2.1 MG/DL (2.5-4.9) Alkaline Phosphatase 119 U/L (45-117) Aspartate Amino Transf (AST/SGOT) 11 U/L (15-37) Total Bilirubin 1.3 MG/DL (0.2-1.0) Potassium Level 2.7 MEQ/L (3.5-5.1) Estimat Glomerular Filtration Rate 82 ML/MIN (>89) Troponin I 0.09 NG/ML (0.02-0.05) ASSESSMENT/PLAN: 1. Hematochezia-stable. Will allow full liquids today and plan on a flex sig for tomorrow. It was a pleasure seeing Alondra Ramsey Thank you for this consult. Entered by: Arpan Perdomo MD Aug 11, 2017 10:48
[2017-08-11] MEDS: MAGNESIUM SULFATE 1 GM PREMIX 100 ML IV SCH ×2 (11:00→12:12)
[2017-08-11] MEDS ORDERED: POTASSIUM PHOSPHATE INJ 30 MMOL in SODIUM CHLOR 0.9% 250 ML INJ 250 ML IV ONE (11:00)
[2017-08-11 11:33] LABS: HEMATOCRIT 28.1 % (35.0-46.0); REVIEW FLAG FINAL
[2017-08-11] MEDS: CHLORHEXIDINE GLUCONATE 2 % 1 PACK (2 CLOTHS) TOP SCH (20:12)
[2017-08-11] MEDS: MAGNESIUM OXIDE 400 MG TAB PO SCH (20:12)
[2017-08-12] VITALS (8 sets, daily range): BP systolic 116–169; BP diastolic 38–84; PULSE 70–92; RESP 18–20; TEMP 96.9–98.7; O2SAT 95–100
[2017-08-12] MEDS ORDERED: LACTATED RINGER'S 1000 ML IV PRN (02:15)
[2017-08-12] MEDS ORDERED: SODIUM CHLORID 0.9% 500 ML IV PRN (02:15)
[2017-08-12 06:55] LABS: AUTOMATED NEUTROPHIL # 5.2 TH/MM3 (1.8-7.7); BASOPHIL % 0.6 % (0.0-2.0); EOSINOPHIL # 0.1 TH/MM3 (0-0.4); EOSINOPHIL % 1.7 % (0.0-4.0); HEMO FLAGS DIFF FINAL; LYMPH % 14.1 % (9.0-44.0); MEAN CORPUSCULAR HEMOGLOBIN 30.2 PG (27.0-34.0); MEAN CORPUSCULAR HGB CONC 34.3 % (32.0-36.0); MONO % 10.3 % (0.0-8.0); NEUT % 73.3 % (16.0-70.0); PLATELET COUNT 144 TH/MM3 (150-450); RED BLOOD COUNT 3.07 MIL/MM3 (4.00-5.30); RED CELL DISTRIBUTION WIDTH 14.7 % (11.6-17.2); WHITE BLOOD COUNT 7.2 TH/MM3 (4.0-11.0)
[2017-08-12 07:25] LABS: BICARBONATE 24.9 MEQ/L (21.0-32.0); MAGNESIUM 1.9 MG/DL (1.5-2.5); POTASSIUM 3.1 MEQ/L (3.5-5.1)
[2017-08-12] MEDS: ARTIFICIAL TEARS OPTH SOLN 15 ML BTL EACH EYE SCH ×3 (09:00→17:45)
[2017-08-12] MEDS: ATENOLOL 25 MG TAB PO SCH (09:08)
[2017-08-12] MEDS: DOCUSATE SODIUM 50 MG/SENNA 8.6 MG TAB PO SCH ×2 (09:08→21:00)
[2017-08-12] MEDS: MAGNESIUM OXIDE 400 MG TAB PO SCH (09:08)
[2017-08-12] MEDS: SODIUM CHLORIDE 0.9% FLUSH 10 ML FLUSH IV FLUSH SCH ×2 (09:09→21:00)
[2017-08-12] MEDS: INSULIN NovoLIN REGULAR SUPPLEMENTAL SCALE SQ SCH ×4 (09:13→21:00)
--- NOTE | 2017-08-12 09:43 | HHI.PR ---
Subjective Remarks Follow-up GI bleed, atrial fibrillation, diabetes. The patient states that she feels better today. No further bleeding. No chest pain, dyspnea, nausea, vomiting. Going for flexible sigmoidoscopy today. Objective Vitals Vital Signs Date Time Temp Pulse Resp B/P (MAP) Pulse Ox O2 Delivery O2 Flow Rate FiO2 08/12/17 08:00 96.9 70 19 119/62 (81) 96 08/12/17 04:00 98.1 92 18 120/73 (89) 99 08/11/17 20:00 98.1 94 20 119/70 (86) 100 08/11/17 17:45 96.0 97 19 138/63 (88) 99 08/11/17 16:00 98.1 93 29 131/67 (88) 100 08/11/17 16:00 93 08/11/17 12:00 99.3 98 27 135/72 (93) 98 08/11/17 12:00 98 08/11/17 11:46 97 I/O 08/11/17 08/11/17 08/11/17 08/12/17 08/12/17 08/12/17 07:00 15:00 23:00 07:00 15:00 23:00 Intake Total 480 ml 100 ml 240 ml 0 ml Balance 480 ml 100 ml 240 ml 0 ml Intake Oral 480 ml 240 ml 0 ml IV Total 100 ml # Voids 5 3 3 # Bowel Movements 0 3 1 Result Diagram: 08/12/17 0619 08/12/17 0619 Imaging Last Impressions GI Bleed Scan Nuclear Medicine 08/09/17 0000 Signed Impressions: Service Date/Time: Wednesday, August 09, 2017 14:59 - CONCLUSION: Negative GI bleeding scan. Antwon Concepcion MD Objective Remarks General: Elderly female in no acute distress. Heart: Regular rate and rhythm. No murmur. Lungs: Clear to auscultation bilaterally. No wheezes, rales, or rhonchi. Breathing is nonlabored. Abdomen: Soft, nontender, nondistended. Extremities: No lower extremity edema. Psych: Alert and oriented. Procedures None Urinary Catheter: No Vascular Central Line Catheter: No A/P Problem List: (1) Elevated troponin ICD Code: R74.8 - Abnormal levels of other serum enzymes (2) Elevated partial thromboplastin time (PTT) ICD Code: R79.1 - Abnormal coagulation profile (3) Dyslipidemia ICD Code: E78.5 - Hyperlipidemia, unspecified (4) Diabetes mellitus ICD Code: E11.9 - Type 2 diabetes mellitus without complications (5) Ulcerative colitis ICD Code: K51.90 - Ulcerative colitis, unspecified, without complications (6) Chronic venous stasis dermatitis ICD Code: I87.2 - Venous insufficiency (chronic) (peripheral) (7) Hypertension ICD Code: I10 - Essential (primary) hypertension (8) History of gastrointestinal diverticular hemorrhage ICD Code: Z87.19 - Personal history of other diseases of the digestive system (9) Acute blood loss anemia ICD Code: D62 - Acute posthemorrhagic anemia (10) Fibrillation, atrial ICD Code: I48.91 - Unspecified atrial fibrillation (11) GI bleed ICD Code: K92.2 - Gastrointestinal hemorrhage, unspecified Status: Acute Assessment and Plan 1. Lower GI bleed, bright red blood per rectum: Appreciate GI recommendations. Flexible sigmoidoscopy today. Nuclear medicine bleeding scan showed no sign of active bleeding. 2. History of ulcerative colitis, diverticulosis: Appreciate GI recommendations. 3. Dementia: Stable, chronic 4. Hypertension: Atenolol on hold. 5. Dyslipidemia: Pravastatin on hold. 6. Atrial fibrillation: Rate controlled. 7. Diabetes mellitus: Metformin on hold. Monitor Accu-Cheks and cover with sliding scale insulin. 8. Acute blood loss anemia: Monitor H&H. Patient received FFP and 1 unit of PRBCs on 08/09. 9. Hypomagnesemia: Slightly improved. 10. Hypokalemia: Supplement potassium and monitor labs. 11. GI prophylaxis: Protonix IV. 12. DVT prophylaxis: SCDs. Avoid chemical prophylaxis secondary to acute bleeding. Problem Qualifiers (1) Diabetes mellitus: Qualified Codes: E11.8 - Type 2 diabetes mellitus with unspecified complications (2) Ulcerative colitis: (3) Hypertension: Qualified Codes: I10 - Essential (primary) hypertension (4) Fibrillation, atrial: Qualified Codes: I48.0 - Paroxysmal atrial fibrillation (5) GI bleed: Qualified Codes: K92.2 - Gastrointestinal hemorrhage, unspecified Lon Cagle MD Aug 12, 2017 09:43
--- NOTE | 2017-08-12 11:49 | GIPROC ---
[facility] [address] [facility]. [facility] [place], [address] FLEXIBLE SIGMOIDOSCOPY PROCEDURE REPORT EXAM DATE: 08/12/2017 PATIENT NAME: Alondra Ramsey MR #: [id number] BIRTHDATE: 1930 ORDER #: [id number] ATTENDING: Arpan Blue MD CUSTOMER RELATIONS REPRESENTATIVE: Wellington Boyd and Zaynab Barnett STATUS: inpatient INDICATIONS: The patient is a 86 yr old female here for a flexible sigmoidoscopy due to hematochezia PROCEDURE PERFORMED: Flexible Sigmoidoscopy, diagnostic MEDICATIONS: Per Anesthesia and None. ESTIMATED BLOOD LOSS: None CONSENT: The patient understands the risks and benefits of the procedure and understands that these risks include, but are not limited to: sedation, allergic reaction, infection, perforation and/or bleeding. Alternative means of evaluation and treatment include, among others: physical exam, x-rays, and/or surgical intervention. The patient elects to proceed with this endoscopic procedure. medical equipment was checked for proper function. Hand hygiene and appropriate measures for infection prevention was taken. After the risks, benefits and alternatives of the procedure were thoroughly explained, Informed consent was verified, confirmed and timeout was successfully executed by the treatment team. A digital rectal exam revealed hemorrhoids The Pentax [id number] endoscope was introduced through the anus and advanced to the descending colon. The prep was poor. The instrument was then slowly withdrawn as the colon was fully examined. COLON FINDINGS: There was mild diverticulosis noted in the sigmoid colon. A large pedunculated polyp was found in the sigmoid colon. Retroflexed views revealed no abnormalities The scope was then completely withdrawn from the patient and the procedure terminated. ADVERSE EVENTS: There were no complications. IMPRESSIONS: 1. Mild diverticulosis was noted in the sigmoid colon 2. Large pedunculated polyp was found in the sigmoid colon 3. Retroflexed views revealed no abnormalities 4. Revealed hemorrhoids RECOMMENDATIONS: Prep for colonoscopy RECALL: Colonoscopy Arpan Blue MD eSigned: Arpan Blue MD 08/12/2017 11:48 AM cc: Lidia Grey M.D.
--- NOTE | 2017-08-12 11:59 | HHI.GIFU ---
GI Follow-up Note Consult Follow-up Flex sig today revealed diverticulosis and a large erythematous pedunculated polyp sigmoid colon. Prep poor as pt refused oral prep last PM. Will schedule colonoscopy for tomorrow if she consents. ASSESSMENT/PLAN: It was a pleasure seeing Alondra Ramsey Thank you for this consult. Entered by: Arpan Perdomo MD Aug 12, 2017 11:59
[2017-08-12] MEDS ORDERED: PEG (High)/E-LYTE SOLN 4000 ML BTL PO ONE (12:00)
[2017-08-12] MEDS ORDERED: DO NOT ADM ANY ANTICOAGULANT DRUGS PRN (13:30)
--- NOTE | 2017-08-12 17:34 | HHI.GIFU ---
GI Follow-up Note Consult Follow-up Came by to discuss flex sig findings and recommendation for colonoscopy. Daughter at bedside. She has a large pedunculated polyp sigmoid colon. I encouraged her to drink the bowel prep and reviewed the risks of colonoscopy with polypectomy. ASSESSMENT/PLAN: It was a pleasure seeing Alondra aRmsey Thank you for this consult. Entered by: Arpan Perdomo MD Aug 12, 2017 17:34
[2017-08-12] MEDS: CHLORHEXIDINE GLUCONATE 2 % 1 PACK (2 CLOTHS) TOP SCH (22:54)
[2017-08-13] VITALS: BP 123/61; PULSE 72; RESP 17; TEMP 95.2; O2SAT 100
[2017-08-13 08:00] VITALS: BP 130/69; PULSE 85; RESP 20; TEMP 96.9; O2SAT 100
[2017-08-13] MEDS: INSULIN NovoLIN REGULAR SUPPLEMENTAL SCALE SQ SCH ×4 (08:00→22:13)
[2017-08-13] MEDS: DOCUSATE SODIUM 50 MG/SENNA 8.6 MG TAB PO SCH ×2 (09:00→22:08)
[2017-08-13] MEDS: ARTIFICIAL TEARS OPTH SOLN 15 ML BTL EACH EYE SCH ×3 (09:00→18:00)
[2017-08-13] MEDS: ATENOLOL 25 MG TAB PO SCH (10:14)
[2017-08-13] MEDS: SODIUM CHLORIDE 0.9% FLUSH 10 ML FLUSH IV FLUSH SCH ×2 (10:15→21:00)
[2017-08-13] MEDS ORDERED: PROPOFOL 200 MG/20 ML AMP ONE (11:25)
[2017-08-13] MEDS ORDERED: ePHEDrine/NS 25 MG/5 ML SYR IV ONE (12:00)
[2017-08-13] MEDS ORDERED: PHENYLEPH/NS 1000 MCG/10 ML SYR IV ONE (12:00)
[2017-08-13] MEDS ORDERED: GLYCOPYRROLATE 1 MG/5 ML SYRINGE IV PUSH ONE (12:00)
--- NOTE | 2017-08-13 12:22 | GIPROC ---
[facility] [address] [facility]. [facility], [address] COLONOSCOPY PROCEDURE REPORT EXAM DATE: 08/13/2017 PATIENT NAME: Alondra Ramsey MR #: [id number] BIRTHDATE: 1930 ENDOSCOPIST: Arpan Blue MD ORDER #: [id number] TAPER MACHINE: Taylor Mitchell STATUS: inpatient INDICATIONS: The patient is a 86 yr old female here for a colonoscopy due to hematochezia PROCEDURE PERFORMED: Colonoscopy with polypectomy MEDICATIONS: Per Anesthesia and None. PREP QUALITY: good PREP TYPE:GoLytely ESTIMATED BLOOD LOSS: None CONSENT: The patient understands the risks and benefits of the procedure and understands that these risks include, but are not limited to: sedation, allergic reaction, infection, perforation and/or bleeding. Alternative means of evaluation and treatment include, among others: physical exam, x-rays, and/or surgical intervention. The patient elects to proceed with this endoscopic procedure. medical equipment was checked for proper function. Hand hygiene and appropriate measures for infection prevention was taken. After the risks, benefits and alternatives of the procedure were thoroughly explained, Informed consent was verified, confirmed and timeout was successfully executed by the treatment team. A digital exam was performed and revealed several skin tags The Pentax [id number] endoscope was introduced through the anus and advanced to the terminal ileum which was intubated for a short distance. The instrument was then slowly withdrawn as the colon was fully examined. COLON FINDINGS: Mild diverticulosis was noted in the ascending colon, transverse colon, descending colon, and sigmoid colon. A polypoid shaped sessile polyp measuring 15 mm in size was found in the ascending colon. A polypectomy was performed using snare cautery. The resection was complete and the polyp tissue was completely retrieved. Multiple polypoid shaped pedunculated and sessile polyps measuring 5-15 mm in size were found in the sigmoid colon. A polypectomy was performed using snare cautery. The resection was complete and the polyp tissue was completely retrieved. Retroflexion was performed and was normal The scope was then completely withdrawn from the patient and the procedure terminated. PROCEDURE WITHDRAWAL TIME:32minutes ADVERSE EVENTS: There were no complications. IMPRESSIONS: 1. Mild diverticulosis was noted in the ascending colon, transverse colon, descending colon, and sigmoid colon 2. A sessile polyp measuring 15 mm in size was found in the ascending colon; polypectomy was performed using snare cautery 3. Multiple pedunculated and sessile polyps measuring 5-15 mm in size were found in the sigmoid colon; polypectomy was performed using snare cautery 4. Retroflexion was performed and was normal 5. Was performed 6. Revealed several skin tags RECOMMENDATIONS: Await biopsy results. Biopsy results will not be ready for 7-10 days. If you don't hear from us in two weeks, call our office for results. RECALL: NONE Arpan Blue MD eSigned: Arpan Blue MD 08/13/2017 12:21 PM cc: Lidia Grey M.D.
--- NOTE | 2017-08-13 12:25 | HHI.GIFU ---
GI Follow-up Note Consult Follow-up Colonoscopy today revealed multiple small and large polyps all removed by snare cautery polypectomy. If does well today can discharge home. ASSESSMENT/PLAN: It was a pleasure seeing Alondra Ramsey Thank you for this consult. Entered by: Arpan Perdomo MD Aug 13, 2017 12:25
--- NOTE | 2017-08-13 14:19 | HHI.PR ---
Subjective Remarks Follow-up GI bleed, A. fib, diabetes. Status post colonoscopy today with multiple polyps. The patient states that she feels good at this time. No nausea , vomiting, diarrhea, constipation. No chest pain or dyspnea. Objective Vitals Vital Signs Date Time Temp Pulse Resp B/P (MAP) Pulse Ox O2 Delivery O2 Flow Rate FiO2 08/13/17 12:49 96.8 79 20 109/69 (82) 100 08/13/17 12:35 96.9 75 18 91/58 (69) 100 Room Air 08/13/17 08:00 96.9 85 20 130/69 (89) 100 08/13/17 00:00 95.2 72 17 123/61 (81) 100 08/12/17 21:08 Nasal Cannula 2.00 08/12/17 20:00 97.8 78 18 122/69 (86) 100 08/12/17 16:00 98.7 73 19 126/65 (85) 100 I/O 08/12/17 08/12/17 08/12/17 08/13/17 08/13/17 08/13/17 07:00 15:00 23:00 07:00 15:00 23:00 Intake Total 200 ml 750 ml 0 ml 500 ml Output Total 1400 ml Balance 200 ml -650 ml 0 ml 500 ml Intake Oral 0 ml 750 ml 0 ml 0 ml IV Total 500 ml Other 200 ml Output Urine Total 500 ml Stool Total 900 ml # Voids 3 5 # Bowel Movements 1 5 Result Diagram: 08/12/17 0619 08/12/17 0619 Imaging Last Impressions GI Bleed Scan Nuclear Medicine 08/09/17 0000 Signed Impressions: Service Date/Time: Wednesday, August 09, 2017 14:59 - CONCLUSION: Negative GI bleeding scan. Antwon Concepcion MD Objective Remarks General: Elderly female in no acute distress. Sitting up in a chair. Heart: Regular rate and rhythm. No murmur. Lungs: Clear to auscultation bilaterally. No wheezes, rales, or rhonchi. Breathing is nonlabored. Abdomen: Soft, nontender, nondistended. Extremities: Trace bilateral lower extremity edema. Psych: Alert and oriented. Procedures 08/12/17 flexible sigmoidoscopy 08/13/17 colonoscopy Urinary Catheter: No Vascular Central Line Catheter: No A/P Problem List: (1) Elevated troponin ICD Code: R74.8 - Abnormal levels of other serum enzymes (2) Elevated partial thromboplastin time (PTT) ICD Code: R79.1 - Abnormal coagulation profile (3) Dyslipidemia ICD Code: E78.5 - Hyperlipidemia, unspecified (4) Diabetes mellitus ICD Code: E11.9 - Type 2 diabetes mellitus without complications (5) Ulcerative colitis ICD Code: K51.90 - Ulcerative colitis, unspecified, without complications (6) Chronic venous stasis dermatitis ICD Code: I87.2 - Venous insufficiency (chronic) (peripheral) (7) Hypertension ICD Code: I10 - Essential (primary) hypertension (8) History of gastrointestinal diverticular hemorrhage ICD Code: Z87.19 - Personal history of other diseases of the digestive system (9) Acute blood loss anemia ICD Code: D62 - Acute posthemorrhagic anemia (10) Fibrillation, atrial ICD Code: I48.91 - Unspecified atrial fibrillation (11) GI bleed ICD Code: K92.2 - Gastrointestinal hemorrhage, unspecified Status: Acute Assessment and Plan 1. Lower GI bleed, bright red blood per rectum: Appreciate GI recommendations. Status post flexible sigmoidoscopy, colonoscopy. No active bleeding seen. Nuclear medicine bleeding scan showed no sign of active bleeding. 2. History of ulcerative colitis, diverticulosis: Appreciate GI recommendations. 3. Dementia: Stable, chronic 4. Hypertension: Atenolol on hold. 5. Dyslipidemia: Pravastatin on hold. 6. Atrial fibrillation: Rate controlled. 7. Diabetes mellitus: Metformin on hold. Monitor Accu-Cheks and cover with sliding scale insulin. 8. Acute blood loss anemia: Monitor H&H. Patient received FFP and 1 unit of PRBCs on 08/09. 9. Hypomagnesemia: Slightly improved. 10. Hypokalemia: Supplement potassium. Labs are pending today. 11. GI prophylaxis: Protonix IV. 12. DVT prophylaxis: SCDs. Avoid chemical prophylaxis secondary to acute bleeding. Discharge Planning Likely discharge to SNF next 1-2 days. Problem Qualifiers (1) Diabetes mellitus: Qualified Codes: E11.8 - Type 2 diabetes mellitus with unspecified complications (2) Ulcerative colitis: (3) Hypertension: Qualified Codes: I10 - Essential (primary) hypertension (4) Fibrillation, atrial: Qualified Codes: I48.0 - Paroxysmal atrial fibrillation (5) GI bleed: Qualified Codes: K92.2 - Gastrointestinal hemorrhage, unspecified Lon Cagle MD Aug 13, 2017 14:19
[2017-08-13] MEDS: NS + KCL 20 MEQ INJ 1,000 ML IV SCH (14:45)
[2017-08-13 16:00] VITALS: BP 122/58; PULSE 63; RESP 19; TEMP 98.7; O2SAT 99
[2017-08-13 20:00] VITALS: BP 115/59; PULSE 76; RESP 17; TEMP 96.4; O2SAT 100
[2017-08-13 21:36] LABS: AUTOMATED NEUTROPHIL # 7.1 TH/MM3 (1.8-7.7); BASOPHIL % 0.5 % (0.0-2.0); EOSINOPHIL # 0.2 TH/MM3 (0-0.4); HEMO FLAGS DIFF FINAL; LYMPHOCYTE # 1.2 TH/MM3 (1.0-4.8); MEAN CELL VOLUME 88.8 FL (80.0-100.0); MEAN CORPUSCULAR HEMOGLOBIN 30.5 PG (27.0-34.0); MEAN CORPUSCULAR HGB CONC 34.3 % (32.0-36.0); MONO % 7.5 % (0.0-8.0); PLATELET COUNT 183 TH/MM3 (150-450); RED BLOOD COUNT 3.27 MIL/MM3 (4.00-5.30); WHITE BLOOD COUNT 9.2 TH/MM3 (4.0-11.0)
[2017-08-13 21:58] LABS: BICARBONATE 25.7 MEQ/L (21.0-32.0); POTASSIUM 3.3 MEQ/L (3.5-5.1)
[2017-08-14] VITALS: BP 115/57; PULSE 78; RESP 17; TEMP 97; O2SAT 99
[2017-08-14] MEDS: CHLORHEXIDINE GLUCONATE 2 % 1 PACK (2 CLOTHS) TOP SCH (04:00)
[2017-08-14 08:00] VITALS: BP 122/62; PULSE 85; RESP 16; TEMP 97.1; O2SAT 99
[2017-08-14] MEDS: INSULIN NovoLIN REGULAR SUPPLEMENTAL SCALE SQ SCH ×3 (08:00→17:00)
[2017-08-14 08:04] LABS: AUTOMATED NEUTROPHIL # 5.5 TH/MM3 (1.8-7.7); BASOPHIL % 0.4 % (0.0-2.0); EOSINOPHIL # 0.2 TH/MM3 (0-0.4); EOSINOPHIL % 3.1 % (0.0-4.0); HEMATOCRIT 27.5 % (35.0-46.0); HEMO FLAGS DIFF FINAL; LYMPH % 13.4 % (9.0-44.0); MEAN CELL VOLUME 89.1 FL (80.0-100.0); MEAN CORPUSCULAR HEMOGLOBIN 30.7 PG (27.0-34.0); MEAN CORPUSCULAR HGB CONC 34.4 % (32.0-36.0); MONO % 10.6 % (0.0-8.0); NEUT % 72.5 % (16.0-70.0); PLATELET COUNT 158 TH/MM3 (150-450); RED BLOOD COUNT 3.08 MIL/MM3 (4.00-5.30); RED CELL DISTRIBUTION WIDTH 15.1 % (11.6-17.2); WHITE BLOOD COUNT 7.6 TH/MM3 (4.0-11.0)
[2017-08-14 08:23] LABS: BICARBONATE 27.3 MEQ/L (21.0-32.0); MAGNESIUM 1.7 MG/DL (1.5-2.5); POTASSIUM 3.1 MEQ/L (3.5-5.1)
[2017-08-14] MEDS: ARTIFICIAL TEARS OPTH SOLN 15 ML BTL EACH EYE SCH ×3 (09:00→17:36)
[2017-08-14] MEDS ORDERED: POTASSIUM CHLORIDE 10 MEQ CONTROLLED RELEASE TAB PO ONE (10:30)
[2017-08-14] MEDS: SODIUM CHLORIDE 0.9% FLUSH 10 ML FLUSH IV FLUSH SCH (10:53)
[2017-08-14] MEDS: ATENOLOL 25 MG TAB PO SCH (10:53)
[2017-08-14] MEDS: DOCUSATE SODIUM 50 MG/SENNA 8.6 MG TAB PO SCH (10:54)
[2017-08-14 12:00] VITALS: BP 121/62; PULSE 120; RESP 16; TEMP 96; O2SAT 97
[2017-08-14] MEDS ORDERED: POTA10CA PO (12:11)
--- NOTE | 2017-08-14 12:12 | HHI.DCPOC ---
Discharge Care Plan Diagnosis: (1) Hypotension (2) GI bleed (3) Acute blood loss anemia (4) Fibrillation, atrial (5) Elevated partial thromboplastin time (PTT) (6) History of gastrointestinal diverticular hemorrhage Goals to Promote Your Health * To prevent worsening of your condition and complications * To maintain your health at the optimal level Directions to Meet Your Goals Take your medications as prescribed Follow your dietary instruction Follow activity as directed Keep your appointments as scheduled Take your immunizations and boosters as scheduled If your symptoms worsen call your PCP, if no PCP go to Urgent Care Center or Emergency Room Smoking is Dangerous to Your Health. Avoid second hand smoke Call the 24-hour hour crisis hotline for domestic abuse at Lon Cagle MD Aug 14, 2017 12:12
--- NOTE | 2017-08-14 12:18 | HHI.PR ---
Subjective Remarks Follow-up GI bleed, A. fib, diabetes. Patient has no complaints at this time. Denies chest pain, dyspnea area no nausea or vomiting. No diarrhea. Objective Vitals Vital Signs Date Time Temp Pulse Resp B/P (MAP) Pulse Ox O2 Delivery O2 Flow Rate FiO2 08/14/17 08:00 97.1 85 16 122/62 (82) 99 08/14/17 00:00 97.0 78 17 115/57 (76) 99 08/13/17 22:24 Nasal Cannula 08/13/17 20:00 96.4 76 17 115/59 (77) 100 08/13/17 16:00 98.7 63 19 122/58 (79) 99 08/13/17 12:49 96.8 79 20 109/69 (82) 100 08/13/17 12:35 96.9 75 18 91/58 (69) 100 Room Air I/O 08/13/17 08/13/17 08/13/17 08/14/17 08/14/17 08/14/17 07:00 15:00 23:00 07:00 15:00 23:00 Intake Total 0 ml 500 ml 916 ml Output Total 1400 ml Balance 0 ml 500 ml -484 ml Intake Oral 0 ml 0 ml 750 ml IV Total 500 ml 166 ml Output Urine Total 1000 ml Stool Total 400 ml # Voids 5 1 # Bowel Movements 5 Result Diagram: 08/14/17 0632 08/14/17 0632 Imaging Last Impressions GI Bleed Scan Nuclear Medicine 08/09/17 0000 Signed Impressions: Service Date/Time: Wednesday, August 09, 2017 14:59 - CONCLUSION: Negative GI bleeding scan. Antwon Concepcion MD Objective Remarks General: Elderly female in no acute distress. Sitting up in a chair. Heart: Regular rate and rhythm. No murmur. Lungs: Clear to auscultation bilaterally. No wheezes, rales, or rhonchi. Breathing is nonlabored. Abdomen: Soft, nontender, nondistended. Extremities: Trace bilateral lower extremity edema. Chronic venous stasis changes bilaterally. Psych: Alert and oriented. Procedures 08/12/17 flexible sigmoidoscopy 08/13/17 colonoscopy Urinary Catheter: No Vascular Central Line Catheter: No A/P Problem List: (1) Elevated troponin ICD Code: R74.8 - Abnormal levels of other serum enzymes (2) Elevated partial thromboplastin time (PTT) ICD Code: R79.1 - Abnormal coagulation profile (3) Dyslipidemia ICD Code: E78.5 - Hyperlipidemia, unspecified (4) Diabetes mellitus ICD Code: E11.9 - Type 2 diabetes mellitus without complications (5) Ulcerative colitis ICD Code: K51.90 - Ulcerative colitis, unspecified, without complications (6) Chronic venous stasis dermatitis ICD Code: I87.2 - Venous insufficiency (chronic) (peripheral) (7) Hypertension ICD Code: I10 - Essential (primary) hypertension (8) History of gastrointestinal diverticular hemorrhage ICD Code: Z87.19 - Personal history of other diseases of the digestive system (9) Acute blood loss anemia ICD Code: D62 - Acute posthemorrhagic anemia (10) Fibrillation, atrial ICD Code: I48.91 - Unspecified atrial fibrillation (11) GI bleed ICD Code: K92.2 - Gastrointestinal hemorrhage, unspecified Status: Acute Assessment and Plan 1. Lower GI bleed, bright red blood per rectum: Appreciate GI recommendations. Status post flexible sigmoidoscopy, colonoscopy. No active bleeding seen. Nuclear medicine bleeding scan showed no sign of active bleeding. 2. History of ulcerative colitis, diverticulosis: Appreciate GI recommendations. 3. Dementia: Stable, chronic 4. Hypertension: Atenolol on hold. 5. Dyslipidemia: Pravastatin on hold. 6. Atrial fibrillation: Rate controlled. Not on anticoagulation due to bleeding. Add aspirin if OK with GI. 7. Diabetes mellitus: Metformin on hold. Monitor Accu-Cheks and cover with sliding scale insulin. 8. Acute blood loss anemia: Monitor H&H. Patient received FFP and 1 unit of PRBCs on 08/09. 9. Hypomagnesemia: Slightly improved. 10. Hypokalemia: Supplement potassium. Labs are pending today. 11. GI prophylaxis: Protonix IV. 12. DVT prophylaxis: SCDs. Avoid chemical prophylaxis secondary to acute bleeding. 13. Elevated troponin: Mildly elevated, trended downward. Likely demand mediated secondary to anemia. No cardiac symptoms including chest pain. Discharge Planning Likely discharge to SNF next 1-2 days. Problem Qualifiers (1) Diabetes mellitus: Qualified Codes: E11.8 - Type 2 diabetes mellitus with unspecified complications (2) Ulcerative colitis: (3) Hypertension: Qualified Codes: I10 - Essential (primary) hypertension (4) Fibrillation, atrial: Qualified Codes: I48.0 - Paroxysmal atrial fibrillation (5) GI bleed: Qualified Codes: K92.2 - Gastrointestinal hemorrhage, unspecified Lon Cagle MD Aug 14, 2017 12:18
[2017-08-14] MEDS: NS + KCL 20 MEQ INJ 1,000 ML IV SCH (14:19)
[2017-08-14] MEDS ORDERED: ASPI81TA23 PO (16:17)
--- NOTE | 2017-08-15 07:19 | MB ---
cc: DIDIER MARROQUIN DO DATE OF CONSULTATION August 14, 2017 REASON FOR CONSULTATION Elevated troponin. HISTORY OF PRESENT ILLNESS Alondra Ramsey is a pleasant 86-year-old female who originally presented to [facility] on August 09, 2017, due to 24-hour history of bright red blood per her rectum. Apparently the events started the day before presenting. She was also hypotensive at that time and received 2 liters of normal saline. EKG showed atrial fibrillation with a controlled ventricular response and during these episodes she denied chest pain or shortness of breath. She underwent sigmoidoscopy as well as colonoscopy and no active bleeding was seen. Nuclear medicine bleeding scan showed no signs of active bleeding. As far as her atrial fibrillation goes, she has apparently been rate-controlled since being here. In seeing her she is currently hemodynamically stable, denying chest pain or shortness of breath. PAST MEDICAL HISTORY 1. History of diverticulosis. 2. History of colonic polyps. 3. Ulcerative colitis. 4. Hypertension. 5. Dyslipidemia. 6. Diabetes mellitus. 7. Chronic venous stasis. 8. New onset atrial fibrillation. PAST SURGICAL HISTORY 1. History of colonoscopy. 2. Varicose veins. ALLERGIES LISINOPRIL. PENICILLIN. SHRIMP. MEDICATIONS 1. Pravastatin 10 mg daily. 2. Atenolol 25 mg daily. 3. Aspirin 81 mg daily. 4. Potassium 10 mEq daily. 5. Metformin 500 mg daily. FAMILY HISTORY Denies premature coronary artery disease or sudden cardiac within the family. SOCIAL HISTORY Denies tobacco, alcohol or drug abuse. REVIEW OF SYSTEMS 14-systems were reviewed including osteopathic pertinent positives and negatives above, otherwise negative. PHYSICAL EXAMINATION VITAL SIGNS: Temperature 97.1, heart rate 85, blood pressure 122/62, respirations 16, pulse ox 99% on 2 liters. GENERAL: The patient appears well, in no acute distress, alert, awake and oriented x3. Extraocular muscles intact. Mucous membranes moist. NECK: Supple. No JVD at 45 degrees. No carotid bruits heard bilaterally. HEART: Irregularly irregular. Positive first and second heart sounds with no murmurs, gallops or rubs. LUNGS: Clear to auscultation bilaterally. No wheezes, rales or rhonchi. ABDOMEN: Soft, nontender, nondistended. No organomegaly noted. EXTREMITIES: 1+ nonpitting edema bilaterally with chronic venous stasis changes and varicose veins noted. NEUROLOGIC: No focal deficits. SKIN: Warm, dry and intact. OSTEOPATHIC: Mild kyphoscoliosis. No lordosis or paraspinal tender points. LABORATORY FINDINGS Hemoglobin 9.5, hematocrit 27.5, platelets 158. Potassium 3.1, BUN 9, creatinine 0.73. Troponin 0.11, decreasing to 0.07. ELECTROCARDIOGRAM (August 09, 2017 at 09:43) Atrial fibrillation with controlled ventricular response and nonspecific ST-T wave changes. IMPRESSION 1. Minimally elevated troponin most likely type 2 in nature due to anemia and hypotension. 2. New onset atrial fibrillation 3. GI bleed. 4. Lower extremity edema most likely due to venous stasis and venous insufficiency. 5. Dyslipidemia. 6. Diabetes mellitus. 7. History of ulcerative colitis. 8. History of hypertension. 9. History of gastrointestinal diverticular hemorrhage. RECOMMENDATIONS 1. Ms. Ramsey appears to have new onset atrial fibrillation which is overall controlled at this time. As far as anticoagulation goes, she does not appear to be a candidate for long-term anticoagulation other than aspirin therapy if cleared by GI as she has had significant GI bleed. 2. She did have a mildly elevated troponin and this is most likely type 2 in nature due to GI bleed as well as hypotension on arrival to the emergency room. 3. No further ischemic workup at this time. This was discussed with the patient and her and her daughter and they both agree that putting her on anticoagulation at this time would be a bad idea as well as further ischemic workup. Thank you for allowing me to see Alondra Ramsey. If there are any questions, please do not hesitate to call. Didier Marroquin DO VGP/SSB /9:30 PM /7:11 AM
== END 2017-08-14 19:46 | DRG 378 ==
LOC: PHED 09:32 → PHEDA 11:09 → HIMW 13:20 → N07B 08-11 17:34
PROVIDERS: ADMIT Family Medicine; ATTEND Family Medicine
PROC: 30233K1 Transfusion of Nonautologous Frozen Plasma into Peripheral Vein, Percutaneous Approach (ICD-10-PCS; principal; 2017-08-09)
PROC: 30233N1 Transfusion of Nonautologous Red Blood Cells into Peripheral Vein, Percutaneous Approach (ICD-10-PCS; 2017-08-09)
PROC: 0DJD8ZZ Inspection of Lower Intestinal Tract, Via Natural or Artificial Opening Endoscopic (ICD-10-PCS; 2017-08-12)
PROC: 0DBK8ZX Excision of Ascending Colon, Via Natural or Artificial Opening Endoscopic, Diagnostic (ICD-10-PCS; 2017-08-13)
PROC: 0DBN8ZX Excision of Sigmoid Colon, Via Natural or Artificial Opening Endoscopic, Diagnostic (ICD-10-PCS; 2017-08-13)
DX: K92.2 Gastrointestinal hemorrhage, unspecified (principal); D62 Acute posthemorrhagic anemia; I95.9 Hypotension, unspecified; I48.91 Unspecified atrial fibrillation; K51.90 Ulcerative colitis, unspecified, without complications; E83.42 Hypomagnesemia; E83.39 Other disorders of phosphorus metabolism; F03.90 Unspecified dementia, unspecified severity, without behavioral disturbance, psychotic disturbance, mood disturbance, and anxiety; E11.9 Type 2 diabetes mellitus without complications; Z79.84 Long term (current) use of oral hypoglycemic drugs; R79.1 Abnormal coagulation profile; K57.30 Diverticulosis of large intestine without perforation or abscess without bleeding; D12.2 Benign neoplasm of ascending colon; D12.5 Benign neoplasm of sigmoid colon; Z86.010 Personal history of colon polyps; K64.9 Unspecified hemorrhoids; I87.2 Venous insufficiency (chronic) (peripheral); I10 Essential (primary) hypertension; R74.8 Abnormal levels of other serum enzymes; H91.90 Unspecified hearing loss, unspecified ear; E87.6 Hypokalemia; E78.5 Hyperlipidemia, unspecified
CPT/HCPCS: 36430; 71010; 76937; 78278; 80048; 80053; 80076; 82140; 82150; 82550; 82552; 82948; 83605; 83690; 83735; 84100; 84132; 84443; 84484; 85014; 85018; 85025; 85610; 85730; 86850; 86900; 86901; 86920; 86927; 87641; 88305; 93005; 94150; 96360; A9560; C9113; J1642; J2370; J3475; J3480; J7030; J7050; P9016; P9017